=== PATIENT | female | born 1980 | race Caucasian/White ===

== ENCOUNTER 2022-09-05 10:01 | Inpatient (IN) | payer MEDICARE, MEDICAID, SELFPAY ==
[2022-09-05 10:30] VITALS: BP 122/78; PULSE 80; RESP 16; TEMP 36.7; O2SAT 95
--- NOTE | 2022-09-05 11:58 | P.CONHOSP_ITS ---
History of Present Illness Data of Consult Service Date: 09/05/22 Requesting physician: Tr Fontanez Primary Care Provider: Unknown Physician HPI Reason for consult: medical H&P 42 year old female with remote history of 1-2 seizures related to electrolyte abnormality (per patient) not on current therapy, depression/anxiety, and alcohol use disorder admitted to psychiatry with consult placed to hospitalist service for medical H&P. She states she will drink 3-4 24oz cans of keri daily, last consumed 3 days ago. She denies w/d symptoms including n/v, tremor, ah/vh, headache, aggitation, anxiety, sweats at this time. No history etoh w/d seizure. Reports occasional nicotine vaping but not cigarettes. No drug use. She has no complaints at this time and states she feels much better compared to when she arrived in the ED. Review of Systems Review of Systems: General: No fevers, malaise, unintentional weight loss HEENT: No blurred vision, diplopia. No sore throat, nasal congestion, rhinorrhea, sinus pain, ear pain Cardiovascular: No chest pain, palpitations, or leg edema Respiratory: No shortness of breath, wheezing, cough GI: No abdominal pain, nausea, vomiting, diarrhea, constipation, melena, hematochezia : No dysuria, hematuria, increased urinary frequency, decreased urinary output MSK: No myalgia, back pain Neuro: No headaches, weakness, paresthesias Skin: No rashes or lesions [facility] Medical History Alcohol use disorder Depression with anxiety History of endometrial biopsy Seizure Surgical History S/P appendectomy S/P total hysterectomy and bilateral salpingo-oophorectomy Social History Household Members: Children Household Members Other:: 16 and 19 year old kids Housing: Apartment Do you presently have visiting nurse or other home services: No Patient Tobacco Use Status: Former Tobacco user Cigarette Packs Per Day: 0.1 Cigarettes Per Day: 2.0 Years Smoked: 23 Smoked in Last 30 Days: Yes e-Cigarette/Vaping Use: Currently Using Frequency of e-Cigarette/Vaping Use: daily Patient Interested in Nicotine Replacement: No Patient Given Instructions on How to Stop Smoking: No Second Hand Smoke Exposure: No Use of substances other than those prescribed or required for medical reasons: No Have you been hit, kicked, punched, or otherwise hurt by someone within the past year? If so, by whom?: No Do you feel safe in your current relationship?: Yes Is there a partner from a previous relationship who is making you feel unsafe now?: No Are you made to feel afraid or neglected: No Advance Directives: No Advance Directives Information Provided: No Advance Directives on File: No Do you have thoughts of harming others: None Do you have a plan to hurt others: No Plan Recently lost weight without trying: No Eating poorly because of decreased appetite: No Nutrition Risks: No Nutritional Risk Patient : No : No Poor oral hygiene: No Meds Allergies Allergy/AdvReac Type Severity Reaction Status Date / Time Unable to Assess Allergy Verified 09/05/22 10:05 Active Medications: Current Medications Acetaminophen (Acetaminophen 325 Mg Tablet) 650 mg PO Q6H PRN PRN Reason: Headache/Pain Mild Scale (1-3) Al Hydroxide/Mg Hydroxide (Magnesium Hydrox/Alum Hydrox 30 Ml Oral.Susp) 30 ml PO Q6H PRN PRN Reason: Heartburn/Nausea Hydroxyzine HCl (Hydroxyzine Hcl 25 Mg Tablet) 25 mg PO Q6H PRN PRN Reason: Anxiety Magnesium Hydroxide (Milk Of Magnesia 30 Ml Oral.Susp) 30 ml PO DAILY PRN PRN Reason: Constipation Nicotine Polacrilex (Nicotine Polacrilex 2 Mg Gum) 2 mg BUCCAL Q2H PRN PRN Reason: Nicotine Cravings Trazodone HCl (Trazodone Hcl 50 Mg Tablet) 50 mg PO BEDTIME MRX1 PRN PRN Reason: Insomnia Home Medications Medication Instructions Recorded Confirmed Last Taken Type clonazepam 1 mg tablet 1 mg PO BID 09/05/22 09/05/22 Unknown History hydroxyzine HCl 25 mg tablet 25 mg PO TID PRN anxiety 09/05/22 09/05/22 Unknown History lurasidone 120 mg tablet (Latuda) 120 mg PO TID 09/05/22 09/05/22 Unknown History trazodone 150 mg tablet 150 mg PO BEDTIME 09/05/22 09/05/22 Unknown History Physical Exam Vital Signs and Narrative: Vital Signs: Last Vital Signs Temp 98.1 F 09/05/22 10:30 Pulse 80 09/05/22 10:30 Resp 16 09/05/22 10:30 BP 122/78 09/05/22 10:30 Pulse Ox 95 09/05/22 10:30 O2 Del Method Room Air 09/05/22 10:30 Constitutional - Awake and Alert, No apparent distress Eyes - PERRLA, EOMI Cardiovascular - S1S2, RRR, No edema Respiratory - Normal lung expansion, Normal respiratory effort, No respiratory distress, CTA bilaterally Gastrointestinal - NT / ND; +BS; No rebound or guarding Extremities - no calf tenderness bilaterally, no swelling Musculoskeletal - Normal inspection, normal ROM Skin - Warm/Dry Neurological - Alert & oriented x3, CN II-XII in tact, 5/5 strength BUE and BLE Psychological - Appropriate affect Assessment and Plan (1) Routine medical exam: Status: Acute Plan 42 year old female with remote history of 1-2 seizures related to electrolyte abnormality (per patient) not on current therapy, depression/anxiety, and alcohol use disorder admitted to psychiatry with consult placed to hospitalist service for medical H&P. #Mood disorder -plan per psychiatry #Alcohol use disorder -no sign of active withdrawal -Plan per psychiatry #Remote seizure activity -r/t electrolyte abnormality per patient (likely mag). Mag 1.7 in ED -No intervention needed #Obesity- r/t excess calories -recommend weight loss efforts #Nicotine vaping -declines NRT -counseled on cessation Thank you for allowing me to participate in this consult. Signing off at this time. Please do not hesitate to call for further questions. Time Spent With Patient Time: Total time managing care of this patient today ____ minutes.
--- NOTE | 2022-09-05 12:22 | PC.NURSE ---
Elsa was admitted to at 1012 from [facility] on CV for treatment of Intrusive thoughts and alcohol use disorder. [facility], attended [facility] outpatient program and stopped going when she started drinking again about a few weeks ago. She has outpt providers through [facility] [place]. Pt reports drinking 3 x 24oz [place] daily for several weeks. She denies history of any other substance use/ abuse. She denies history of alcohol withdrawal seizures. When I'm withdrawing I'm just irritable. I don't get any other problems. On admission she is alert, fully oriented, pleasant and largely cooperative. She is irritable about inability to use phone or underwire bra. Mood is depressed. Affect is irritable. She denies hallucinations but reports intrusive, repetitive thoughts I am the devil. She does not appear internally preoccupied and did not respond to internal stimuli during admission interview. She is somewhat inattentive: exhibits difficulty completing tasks i.e. menu and seems to lose train of thought mid sentence. Elsa denies Ideation, plan or intent to harm self or others. She denies change in appetite. Sleep is reportedly poor. She denies medical Issues?and denies allergies.She denies current physical complaint Elsa is placed on q 15 minute checks for safety.
[2022-09-05 12:56] VITALS: BMI 50.7
[2022-09-05] MEDS: clonazePAM 1 MG TABLET PO ×2 (14:32→20:24)
[2022-09-05 15:45] VITALS: BP 129/78; PULSE 98; RESP 16; TEMP 36.4; O2SAT 98
[2022-09-05] MEDS: Thiamine HCL 100 MG TABLET PO (15:56)
[2022-09-05] MEDS: Folic Acid 1 MG TABLET PO (15:56)
[2022-09-05] MEDS: Losartan Potassium 50 MG TABLET PO (15:56)
[2022-09-05] MEDS: hydrOXYzine HCL 25 MG TABLET PO ×2 (16:47→22:03)
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
[2022-09-05] MEDS: Lurasidone HCl 40 MG TABLET 120 MG PO (18:42)
[2022-09-05 20:16] VITALS: BP 128/87; PULSE 92; RESP 18; TEMP 36.2; O2SAT 100
[2022-09-05] MEDS: traZODone HCL 50 MG TABLET 150 MG PO (20:23)
[2022-09-05] MEDS: Acetaminophen 325 MG TABLET 650 MG PO (20:24)
[2022-09-05] MEDS: LORazepam 1 MG TABLET PO (20:24)
[2022-09-05] MEDS: traZODone HCL 50 MG TABLET PO (22:04)
[2022-09-06] MEDS: LORazepam 1 MG TABLET PO ×2 (00:07→19:50)
[2022-09-06] MEDS: traZODone HCL 50 MG TABLET PO (00:07)
[2022-09-06] MEDS: hydrOXYzine HCL 25 MG TABLET PO (05:16)
[2022-09-06 09:00] VITALS: BP 125/84; PULSE 96; RESP 18; TEMP 36.3; O2SAT 96
[2022-09-06] MEDS: Naltrexone HCl 50 MG TABLET PO (09:17)
[2022-09-06] MEDS: Losartan Potassium 50 MG TABLET PO (09:17)
[2022-09-06] MEDS: Folic Acid 1 MG TABLET PO (09:18)
[2022-09-06] MEDS: Thiamine HCL 100 MG TABLET PO (09:18)
[2022-09-06 09:26] LABS: Estimated Average Glucose 88 mg/dL; Hemoglobin A1c % 4.7 %
[2022-09-06 09:55] LABS: Alanine Aminotransferase 37 U/L (0-31); Albumin Level 4.1 g/dL (3.5-5.0); Alkaline Phosphatase 63 U/L (39-117); Anion Gap 13 (12-20); Aspartate Amino Transferase 79 U/L (5-31); Bilirubin Total 1.3 mg/dL (0.0-1.0); Blood Urea Nitrogen 9 mg/dL (9-16); Calcium 9.7 mg/dL (8.4-10.2); Carbon Dioxide 30 mmol/L (22-29); Chloride 101 mmol/L (96-108); Cholesterol 159 mg/dL; Creatinine Clr Calc Pharmacy 115.9; Estimated Glomerular Filt Rate > 60; Glucose Fasting 89 mg/dL (60-99); HDL Cholesterol 77 mg/dL; LDL Cholesterol Calculated 58 mg/dl; Potassium 3.7 mmol/L (3.3-5.1); Sodium 140 mmol/L (135-145); Total Protein 6.9 g/dL (6.5-8.0); Triglycerides 123 mg/dL
[2022-09-06 10:13] LABS: Folate 11.4 ng/mL (> or = 4.0); Free T4 (Free Thyroxine) 1.08 ng/dL (0.71-1.85); Thyroid Stimulating Hormone 1.44 uIU/mL (0.32-4.0); Vitamin B12 243 pg/mL (200-900)
[2022-09-06] MEDS: Haloperidol Lactate 5 MG/ML VIAL 10 MG IM (10:14)
[2022-09-06] MEDS: diphenhydrAMINE HCL 50 MG/ML VIAL IM (10:15)
[2022-09-06] MEDS: LORazepam 2 MG/ML VIAL IM (10:15)
[2022-09-06] MEDS: Acetaminophen 325 MG TABLET 650 MG PO (12:36)
[2022-09-06] MEDS: clonazePAM 1 MG TABLET PO ×2 (12:36→20:12)
--- NOTE | 2022-09-06 12:44 | P.PNPSI_ITS ---
Subjective Subjective Date of Service: 09/06/22 Reason For Visit: Dpression,Anxiety Disorder,Hx of Alcohol Interim History: pt wailing, calling out to god, not seeming to be able to support her own weight yet not sitting down when staff attempt to help her, leaving them supporting her under her arms but her not complying with attempts to get her to sit down. due to risk of harm to staff and patient (pt is quite obese), pt was placed in restraint chair and medicated IM with haldol, ativan, and benadryl. she eventually calmed and her thoughts became less frenzied and she moved under her own power. per staff, pt had trazodone, atarax, and ativan last night and only slept about 2 hours. Mental Status Exam Mental Status Exam Narrative: obese, disheveled, dressed in street clothes. not cooperative. no PMA/PMR. speech loud, wailing, incessant. thoughts hyper-bahai. affect constricted, hyper-intense, labile. no SI/HI/AVH expressed. Diagnostics Vital Signs (24Hr): Vital Signs - 24 hr 09/05/22 15:45 09/05/22 20:16 09/06/22 09:00 Temperature 97.6 F 97.2 F 97.4 F Pulse Rate 98 92 96 Respiratory Rate 16 18 18 Blood Pressure 129/78 128/87 125/84 Pulse Oximetry 98 100 96 Oxygen Delivery Method Room Air Room Air Room Air BMI result Body Mass Index 50.7 Labs 09/06/22 08:21 Labs: Laboratory Results - last 48 hr 09/06/22 09/06/22 08:21 08:21 Sodium 140 Potassium 3.7 Chloride 101 Carbon Dioxide 30 H Anion Gap 13 BUN 9 Creatinine 0.81 Estim Creat Clear Calc 115.9 Estimated GFR > 60 Fasting Glucose 89 Estimat Average Glucose 88 Hemoglobin A1c % 4.7 Calcium 9.7 Total Bilirubin 1.3 H AST 79 H ALT 37 H Alkaline Phosphatase 63 Total Protein 6.9 Albumin 4.1 Triglycerides 123 Cholesterol 159 LDL Cholesterol, Calc 58 HDL Cholesterol 77 Vitamin B12 243 Folate 11.4 TSH 1.44 Free T4 1.08 Medications Medications Current Medications Acetaminophen (Acetaminophen 325 Mg Tablet) 650 mg PO Q6H PRN PRN Reason: Headache/Pain Mild Scale (1-3) Last Admin: 09/06/22 12:36 Dose: 650 mg Al Hydroxide/Mg Hydroxide (Magnesium Hydrox/Alum Hydrox 30 Ml Oral.Susp) 30 ml PO Q6H PRN PRN Reason: Heartburn/Nausea Clonazepam (Clonazepam 1 Mg Tablet) 1 mg PO BID@1300,2100 [facility] Last Admin: 09/06/22 12:36 Dose: 1 mg Folic Acid (Folic Acid 1 Mg Tablet) 1 mg PO DAILY [facility] Last Admin: 09/06/22 09:18 Dose: 1 mg Hydroxyzine HCl (Hydroxyzine Hcl 25 Mg Tablet) 25 mg PO TID PRN PRN Reason: anxiety Last Admin: 09/06/22 05:16 Dose: 25 mg Lorazepam (Lorazepam 1 Mg Tablet) 1 mg PO Q2H PRN PRN Reason: CIWA 8-11 Last Admin: 09/06/22 00:07 Dose: 1 mg Lorazepam (Lorazepam 1 Mg Tablet) 2 mg PO Q2H PRN PRN Reason: CIWA 12-15 Lorazepam (Lorazepam 1 Mg Tablet) 3 mg PO Q2H PRN PRN Reason: CIWA > 15; and call Losartan Potassium (Losartan Potassium 50 Mg Tablet) 50 mg PO DAILY [facility]; P rotocol Last Admin: 09/06/22 09:17 Dose: 50 mg Lurasidone HCl (Lurasidone Hcl 40 Mg Tablet) 120 mg PO DAILY@1800 [facility] Last Admin: 09/05/22 18:42 Dose: 120 mg Magnesium Hydroxide (Milk Of Magnesia 30 Ml Oral.Susp) 30 ml PO DAILY PRN PRN Reason: Constipation Naltrexone HCl (Naltrexone Hcl 50 Mg Tablet) 50 mg PO DAILY [facility] Last Admin: 09/06/22 09:17 Dose: 50 mg Nicotine Polacrilex (Nicotine Polacrilex 2 Mg Gum) 2 mg BUCCAL Q2H PRN PRN Reason: Nicotine Cravings Thiamine HCl (Thiamine Hcl 100 Mg Tablet) 100 mg PO DAILY [facility] Last Admin: 09/06/22 09:18 Dose: 100 mg Trazodone HCl (Trazodone Hcl 50 Mg Tablet) 50 mg PO BEDTIME MRX1 PRN PRN Reason: Insomnia Last Admin: 09/06/22 00:07 Dose: 50 mg Trazodone HCl (Trazodone Hcl 50 Mg Tablet) 150 mg PO BEDTIME [facility] Last Admin: 09/05/22 20:23 Dose: 150 mg Allergies Allergies Allergy/AdvReac Type Severity Reaction Status Date / Time Unable to Assess Allergy Verified 09/05/22 10:05 Assessment & Plan Assessment & Plan (1) PTSD (post-traumatic stress disorder): Status: Acute Code(s): F43.10 - Post-traumatic stress disorder, unspecified (2) Alcohol use disorder: Status: Acute Code(s): F10.90 - Alcohol use, unspecified, uncomplicated Plan 09/05: ativan per [facility] protocol for AUD. restart outpt meds of latuda, trazodone, klonopin, hydroxyzine. pt reports AH but is vague and evasive in answering detailed questions about them. psychotic disorder as a Dx is in doubt. 09/06: dysregulated emotions and behavior, seemingly with some purposeful behavior maintained throughout. major scene in the milieu, numerous staff involved with calming and supporting patient for an hour. pt was briefly in restraint chair and given haldol 10, ativan 2, benadryl 50 IM. she calmed and returned to previous MS here, reportedly napping 2 hours after IMs. continue current mgmt for now, as Dx is unclear. of note, pt only slept 2 hours last nighty despite multiple sedating medications at HS. Reason for continued inpatient stay Substantial Risk for: harm to self, inability to function and rapid decompensation Time Spent With Patient Time: Total time managing care of this patient today __35__ minutes.
--- NOTE | 2022-09-06 15:31 | PC.NURSE ---
At 0955,? pt was attempting to call a relative. When they didn't answer the phone, pt was in the kitchen area when she threw herself on the floor. When staff attempted to help her up and put a chair behind her to have her sit down, pt refused to sit and began throwing herself forward and into staff. Pt was threatening her own safety via falling to the ground. She started to cry, became agitated, yelled at staff and was unable to be redirected. RN offered PO medication and offered to take her to a different room but she refused. Dr. Fontanez placed orders for restraint chair and IM medications. Pt was placed in the restraint chair at 1000. Pt was initially uncooperative and removed her hand from restraints several times. At 1015, RN administered IM Benadryl 50mg and IM Ativan 2mg in pt?s left deltoid, administered IM Haldol 10mg in right deltoid. Pt accepted IM medications. Pt initially refused vital signs for the first 30 minutes but accepted them at 1045: BP 126/80, HR 109, Temp 98.1, Resp 20.? Pt eventually calmed down and was released from restraints at 1054.
[2022-09-06] MEDS: Nicotine Polacrilex 2 MG GUM BUCCAL (16:14)
[2022-09-06] MEDS: Lurasidone HCl 40 MG TABLET 120 MG PO (18:21)
[2022-09-06 20:05] VITALS: BP 133/78; PULSE 118; RESP 18; TEMP 36.7; O2SAT 95
[2022-09-06] MEDS: traZODone HCL 50 MG TABLET 150 MG PO (20:11)
[2022-09-07] MEDS: traZODone HCL 50 MG TABLET PO ×2 (01:51→22:40)
[2022-09-07] MEDS: hydrOXYzine HCL 25 MG TABLET PO ×3 (01:51→22:40)
[2022-09-07 08:19] VITALS: BP 142/96; PULSE 91; RESP 20; TEMP 36.4; O2SAT 96
[2022-09-07] MEDS: Losartan Potassium 50 MG TABLET PO (08:20)
[2022-09-07] MEDS: Thiamine HCL 100 MG TABLET PO (08:20)
[2022-09-07] MEDS: Naltrexone HCl 50 MG TABLET PO (08:20)
[2022-09-07] MEDS: Folic Acid 1 MG TABLET PO (08:20)
[2022-09-07] MEDS: clonazePAM 1 MG TABLET PO ×2 (12:39→20:23)
[2022-09-07 12:45] VITALS: BP 139/67; PULSE 68; RESP 18; TEMP 36.4; O2SAT 100
[2022-09-07] MEDS: Acetaminophen 325 MG TABLET 650 MG PO (16:02)
[2022-09-07] MEDS: Nicotine Polacrilex 2 MG GUM BUCCAL (16:04)
--- NOTE | 2022-09-07 16:13 | P.PNPSI_ITS ---
Subjective Subjective Date of Service: 09/07/22 Reason For Visit: Dpression,Anxiety Disorder,Hx of Alcohol Interim History: calm, cooperative. reports she feels back to her usual self. describes her psychosis of having a dream she is the devil and then waking up and being alone and thinking she is in hell. all the while she is aware she is not the devil and not really in hell. asking for discharge tomorrow. feels she will sleep better at home. agreeable to trial of prazosin for sleep/nightmares. per staff, eating, napping. felt overwhelmed yesterday. tearful on eves. had some trazodone and atarax and slept well last night. Mental Status Exam Mental Status Exam Narrative: obese, disheveled, dressed in jesu. cooperative. no PMA/PMR. speech nml in rate, amount, loudness. thoughts linear and logical. affect constricted, hypo- intense, non-labile. mood euthymic. no SI/SIBI/HI/AVH expressed. Diagnostics Vital Signs (24Hr): Vital Signs - 24 hr 09/06/22 20:05 09/07/22 08:19 09/07/22 12:45 Temperature 98.1 F 97.6 F 97.6 F Pulse Rate 118 H 91 68 Respiratory Rate 18 20 18 Blood Pressure 133/78 142/96 H 139/67 Pulse Oximetry 95 96 100 Oxygen Delivery Method Room Air Room Air Room Air BMI result Body Mass Index 50.7 Labs 09/06/22 08:21 Labs: Laboratory Results - last 48 hr 09/06/22 09/06/22 08:21 08:21 Sodium 140 Potassium 3.7 Chloride 101 Carbon Dioxide 30 H Anion Gap 13 BUN 9 Creatinine 0.81 Estim Creat Clear Calc 115.9 Estimated GFR > 60 Fasting Glucose 89 Estimat Average Glucose 88 Hemoglobin A1c % 4.7 Calcium 9.7 Total Bilirubin 1.3 H AST 79 H ALT 37 H Alkaline Phosphatase 63 Total Protein 6.9 Albumin 4.1 Triglycerides 123 Cholesterol 159 LDL Cholesterol, Calc 58 HDL Cholesterol 77 Vitamin B12 243 Folate 11.4 TSH 1.44 Free T4 1.08 Medications Medications Current Medications Acetaminophen (Acetaminophen 325 Mg Tablet) 650 mg PO Q6H PRN PRN Reason: Headache/Pain Mild Scale (1-3) Last Admin: 09/07/22 16:02 Dose: 650 mg Al Hydroxide/Mg Hydroxide (Magnesium Hydrox/Alum Hydrox 30 Ml Oral.Susp) 30 ml PO Q6H PRN PRN Reason: Heartburn/Nausea Clonazepam (Clonazepam 1 Mg Tablet) 1 mg PO BID@1300,2100 [facility] Last Admin: 09/07/22 12:39 Dose: 1 mg Folic Acid (Folic Acid 1 Mg Tablet) 1 mg PO DAILY [facility] Last Admin: 09/07/22 08:20 Dose: 1 mg Hydroxyzine HCl (Hydroxyzine Hcl 25 Mg Tablet) 25 mg PO TID PRN PRN Reason: anxiety Last Admin: 09/07/22 10:53 Dose: 25 mg Lorazepam (Lorazepam 0.5 Mg Tablet) 0.5 mg PO ONCE ONE Stop: 09/07/22 16:11 Lorazepam (Lorazepam 0.5 Mg Tablet) 0.5 mg PO ONCE ONE Stop: 09/07/22 21:01 Losartan Potassium (Losartan Potassium 50 Mg Tablet) 50 mg PO DAILY [facility]; Protocol Last Admin: 09/07/22 08:20 Dose: 50 mg Lurasidone HCl (Lurasidone Hcl 40 Mg Tablet) 120 mg PO DAILY@1800 [facility] Last Admin: 09/06/22 18:21 Dose: 120 mg Magnesium Hydroxide (Milk Of Magnesia 30 Ml Oral.Susp) 30 ml PO DAILY PRN PRN Reason: Constipation Naltrexone HCl (Naltrexone Hcl 50 Mg Tablet) 50 mg PO DAILY [facility] Last Admin: 09/07/22 08:20 Dose: 50 mg Nicotine Polacrilex (Nicotine Polacrilex 2 Mg Gum) 2 mg BUCCAL Q2H PRN PRN Reason: Nicotine Cravings Last Admin: 09/07/22 16:04 Dose: 2 mg Prazosin HCl (Prazosin Hcl 1 Mg Capsule) 2 mg PO BEDTIME [facility]; Protocol Thiamine HCl (Thiamine Hcl 100 Mg Tablet) 100 mg PO DAILY [facility] Last Admin: 09/07/22 08:20 Dose: 100 mg Trazodone HCl (Trazodone Hcl 50 Mg Tablet) 50 mg PO BEDTIME MRX1 PRN PRN Reason: Insomnia Last Admin: 09/07/22 01:51 Dose: 50 mg Trazodone HCl (Trazodone Hcl 50 Mg Tablet) 150 mg PO BEDTIME [facility] Last Admin: 09/06/22 20:11 Dose: 150 mg Allergies Allergies Allergy/AdvReac Type Severity Reaction Status Date / Time Unable to Assess Allergy Verified 09/05/22 10:05 Assessment & Plan Assessment & Plan (1) PTSD (post-traumatic stress disorder): Status: Acute Code(s): F43.10 - Post-traumatic stress disorder, unspecified (2) Alcohol use disorder: Status: Acute Code(s): F10.90 - Alcohol use, unspecified, uncomplicated Plan 09/05: ativan per [facility] protocol for AUD. restart outpt meds of latuda, trazodone, klonopin, hydroxyzine. pt reports AH but is vague and evasive in answering detailed questions about them. psychotic disorder as a Dx is in doubt. 09/06: dysregulated emotions and behavior, seemingly with some purposeful behavior maintained throughout. major scene in the milieu, numerous staff involved with calming and supporting patient for an hour. pt was briefly in restraint chair and given haldol 10, ativan 2, benadryl 50 IM. she calmed and returned to previous MS here, reportedly napping 2 hours after IMs. continue current mgmt for now, as Dx is unclear. of note, pt only slept 2 hours last nighty despite multiple sedating medications at HS. 09/07: brighter and more flexible mood. reports she was feeling overwhelmed yesterday. says she is feeling her normal self today and would like to d ischarge. planning for discharge tomorrow. brief ativan taper tonight, add prazosin for nightmares/insomnia. Reason for continued inpatient stay Substantial Risk for: rapid decompensation Time Spent With Patient Time: Total time managing care of this patient today __25__ minutes.
[2022-09-07] MEDS: LORazepam 0.5 MG TABLET PO ×2 (16:30→20:23)
[2022-09-07] MEDS: Lurasidone HCl 40 MG TABLET 120 MG PO (18:13)
[2022-09-07] MEDS: Magnesium Hydrox/Alum Hydrox 30 ML ORAL.SUSP PO (19:25)
[2022-09-07 20:10] VITALS: BP 153/89; PULSE 78; RESP 18; TEMP 36.8; O2SAT 97
[2022-09-07] MEDS: Prazosin HCL 1 MG CAPSULE 2 MG PO (20:23)
[2022-09-07] MEDS: traZODone HCL 50 MG TABLET 150 MG PO (20:23)
[2022-09-08] MEDS: Acetaminophen 325 MG TABLET 650 MG PO (06:00)
[2022-09-08] MEDS: hydrOXYzine HCL 25 MG TABLET PO (07:14)
[2022-09-08] MEDS: Naltrexone HCl 50 MG TABLET PO (08:25)
[2022-09-08] MEDS: Folic Acid 1 MG TABLET PO (08:25)
[2022-09-08] MEDS: Thiamine HCL 100 MG TABLET PO (08:25)
[2022-09-08] MEDS: Losartan Potassium 50 MG TABLET PO (08:25)
[2022-09-08 08:27] VITALS: BP 145/71; PULSE 80; RESP 18; TEMP 36.2; O2SAT 98
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
--- NOTE | 2022-09-08 09:14 | PC.NURSE ---
Pt reports that her PCP has retired but she goes to [facility] for her PCP care. Pt gave verbal consent to call and schedule appointment. [phone].
== END 2022-09-08 09:36 | disposition home or self-care (01) | DRG 882 ==
PROVIDERS: Admitting Provider Psychiatry & Neurology Psychiatry; Visit Provider Psychiatry & Neurology Psychiatry
DX: F43.10 Post-traumatic stress disorder, unspecified (principal); Z68.43 Body mass index [BMI] 50.0-59.9, adult; F41.8 Other specified anxiety disorders; F17.290 Nicotine dependence, other tobacco product, uncomplicated; E66.09 Other obesity due to excess calories; F10.10 Alcohol abuse, uncomplicated; Z79.899 Other long term (current) drug therapy
CPT/HCPCS: 36415; 80053; 80061; 82607; 82746; 83036; 84439; 84443; J1200; J2060